=== PATIENT | male | born 1980 | race Caucasian/White ===

== ENCOUNTER → 2017-04-07 | Outpatient (CLI) | payer BC | LOC: RAD 13:11 | DX: Z01.812 Encounter for preprocedural laboratory examination (principal); E11.9 Type 2 diabetes mellitus without complications; R12 Heartburn; G47.33 Obstructive sleep apnea (adult) (pediatric); E78.5 Hyperlipidemia, unspecified; Z72.0 Tobacco use | CPT/HCPCS: 71020; G0480 ==

== ENCOUNTER → 2021-10-21 | Outpatient (CLI) | payer BC | LOC: KOH-I 14:00 | DX: E03.9 Hypothyroidism, unspecified (principal) | CPT/HCPCS: 76536 ==

== ENCOUNTER → 2022-02-16 | Outpatient (CLI) | payer BC ==
[~2022-02-16] MED LIST: VISTARIL 50 MG50 MG PO
== END ==
LOC: KOH-I 15:00
DX: R53.1 Weakness (principal); I65.23 Occlusion and stenosis of bilateral carotid arteries
CPT/HCPCS: 93880

== ENCOUNTER → 2022-02-16 | Outpatient (CLI) | payer BC | LOC: EMI 08:30 | DX: R53.1 Weakness (principal); J32.2 Chronic ethmoidal sinusitis; J32.0 Chronic maxillary sinusitis | CPT/HCPCS: 70551 ==

== ENCOUNTER 2022-02-20 17:46 | Emergency (ER) | payer BC ==
[2022-02-20 19:08] LABS: HEMOGLOBIN 16.9 gm/dl (14.0-17.5); RED BLOOD COUNT 5.53 M/UL (4.20-5.50); WHITE BLOOD COUNT 9.5 K/UL (4.5-11.0)
[2022-02-20 19:27] LABS: BUN/CREATININE RATIO 14 (0-10)
[2022-02-21] MEDS ORDERED: VISTARIL 50 MG50 MG PO (01:09)
== END 2022-02-21 01:26 | disposition home or self-care (01) ==
LOC: ER1 17:46
PROVIDERS: Physician Assistant Medical
DX: R07.89 Other chest pain (principal); R55 Syncope and collapse; E87.6 Hypokalemia; E03.9 Hypothyroidism, unspecified; I11.9 Hypertensive heart disease without heart failure; I25.2 Old myocardial infarction; E78.5 Hyperlipidemia, unspecified; F17.290 Nicotine dependence, other tobacco product, uncomplicated; Z95.5 Presence of coronary angioplasty implant and graft; Z79.82 Long term (current) use of aspirin
CPT/HCPCS: 71045; 80053; 82550; 82553; 84439; 84443; 84484; 85025; 85379; 93005; 99285

== ENCOUNTER → 2022-05-11 | Outpatient (CLI) | payer BC | LOC: HEART 5 13:13 | DX: R55 Syncope and collapse (principal) ==

== ENCOUNTER 2022-07-12 14:59 | Emergency (ER) | payer BC ==
[2022-07-12 16:23] LABS: HEMOGLOBIN 15.3 gm/dl (14.0-17.5); RED BLOOD COUNT 5.11 M/UL (4.20-5.50); WHITE BLOOD COUNT 6.7 K/UL (4.5-11.0)
[2022-07-12 16:52] LABS: BUN/CREATININE RATIO 13 (0-10)
[2022-07-12] MEDS ORDERED: MECLIZINE HCL25 MG PO (20:24)
[2022-07-12] MEDS ORDERED: LISINOPRIL20 MG PO (20:32)
== END 2022-07-12 21:20 | disposition home or self-care (01) ==
LOC: ER1 14:59
PROVIDERS: Emergency Medicine
DX: R42 Dizziness and giddiness (principal); R07.89 Other chest pain; E87.6 Hypokalemia; R00.1 Bradycardia, unspecified; E03.9 Hypothyroidism, unspecified; F17.290 Nicotine dependence, other tobacco product, uncomplicated; Z90.49 Acquired absence of other specified parts of digestive tract; Z98.84 Bariatric surgery status; Z79.82 Long term (current) use of aspirin
CPT/HCPCS: 71045; 80053; 82550; 82553; 84439; 84443; 84484; 85025; 93005; 99284

== ENCOUNTER → 2022-08-03 | Outpatient (CLI) | payer BC ==
[~2022-08-03] MED LIST changes: +LISINOPRIL20 MG PO; +MECLIZINE HCL25 MG PO
== END ==
LOC: CATH 07-24 10:00 → EDSTATUS 10:00 → CATH 10:00
DX: R00.2 Palpitations (principal); R55 Syncope and collapse; E03.9 Hypothyroidism, unspecified; F41.9 Anxiety disorder, unspecified; R29.90 Unspecified symptoms and signs involving the nervous system

== ENCOUNTER → 2022-08-17 | Outpatient (CLI) | payer BC | LOC: KOH-I 15:07 | DX: R10.32 Left lower quadrant pain (principal) | CPT/HCPCS: 76870 ==